=== PATIENT | female | born 2000 | race Two or more races ===

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

== ENCOUNTER 2023-06-05 04:58 | Emergency (ER) | payer OTHER ==
[~2023-06-05] VITALS: Ht 152.4 cm; Wt 61.2 kg
[2023-06-05] MEDS ORDERED: NORFLEX100MG PO (06:56)
[2023-06-05] MEDS ORDERED: NABUMETONE750 MG PO (06:56)
== END 2023-06-05 06:06 | disposition home or self-care (01) ==
LOC: ER 04:58
DX: M62.830 Muscle spasm of back (principal)

== ENCOUNTER 2024-01-22 15:37 | Emergency (ER) | payer OTHER ==
[~2024-01-22] VITALS: Ht 157.5 cm; Wt 52.2 kg
[~2024-01-22 15:37] MED LIST: NABUMETONE750 MG PO; NORFLEX100MG PO
[2024-01-22] MEDS ORDERED: 0.9 % SODIUM CHLORIDE 1,000 ML IV STA (19:20)
[2024-01-22] MEDS ORDERED: KETOROLAC TROMETHAMINE 30 MG VIAL IV STA (19:21)
[2024-01-22] MEDS ORDERED: MORPHINE SULFATE 4 MG/ML CARTRIDGE IV STA (19:22)
[2024-01-22 19:49] LABS: URINE APPEARANCE Clear; URINE BILIRRUBIN Negative (NEGATIVE); URINE BLOOD Small; URINE COLOR Yellow; URINE GLUCOSE Negative (NEGATIVE); URINE LEUKOCYTE Negative; URINE NITRATE Negative; URINE PROTEIN Negative (NEGATIVE); URINE UROBILINOGEN 0.2 E.U./dl
[2024-01-22 19:50] LABS: HEMATOCRIT 41.4 % (36.0-45.00); MEAN CELL VOLUME 80.7 fL (80.00-100.00); MEAN CORPUSCULAR HEMOGLOBIN 27.3 pg (27.00-32.0); MEAN CORPUSCULAR HGB CONC 33.9 g/dl (32.0-36.0); PLATELET COUNT 348 K/uL (150-450); RED BLOOD COUNT 5.14 M/uL (4.00-6.00); RED CELL DISTRIBUTION WIDTH 13.4 % (11.5-14.5)
[2024-01-22 19:53] LABS: URINE BACTERIA 426.9 uL (0.0-1933); URINE EPITHELIAL CELLS 6.9 uL (0.0-38.8); URINE WBC 4.9 uL (0.0-23.2)
[2024-01-22 20:11] LABS: INR 1.06; PARTIAL THROMBOPLASTIN TIME 27.7 SECONDS (22.0-34.0); PROTHROMBIN TIME 11.1 SECONDS (9.0-11.5)
[2024-01-22 20:16] LABS: ALBUMIN 4.1 gm/dL (3.4-5.0); BILIRUBIN TOTAL 0.5 mg/dL (0.3-1.2); CALCIUM 9.7 mg/dL (8.5-10.1); CREATININE SERUM 0.66 mg/dL (0.55-1.02); GFR 110.98; GLOBULINA 4.4 G/DL (2.4-3.5); POTASSIUM 3.7 mEq/L (3.5-5.1); TOTAL PROTEIN 8.5 gm/dL (6.4-8.2)
== END 2024-01-22 22:34 | disposition home or self-care (01) ==
LOC: ER 15:37
DX: R10.2 Pelvic and perineal pain (principal); D25.9 Leiomyoma of uterus, unspecified

== ENCOUNTER 2024-01-25 14:57 | Emergency (ER) | payer OTHER ==
[~2024-01-25] VITALS: Ht 157.5 cm; Wt 58.5 kg
[2024-01-25] MEDS ORDERED: 0.9 % SODIUM CHLORIDE 1,000 ML IV STA (16:16)
[2024-01-25] MEDS ORDERED: KETOROLAC TROMETHAMINE 30 MG VIAL IV STA (16:16)
[2024-01-25] MEDS ORDERED: MORPHINE SULFATE 4 MG/ML CARTRIDGE IV STA (16:17)
[2024-01-25] MEDS ORDERED: ONDANSETRON HCL 2 MG/ML VIAL IV STA (16:19)
[2024-01-25 17:13] LABS: HEMATOCRIT 38.2 % (36.0-45.00); MEAN CELL VOLUME 81.1 fL (80.00-100.00); MEAN CORPUSCULAR HEMOGLOBIN 27.6 pg (27.00-32.0); PLATELET COUNT 340 K/uL (150-450); RED BLOOD COUNT 4.71 M/uL (4.00-6.00)
[2024-01-25 17:28] LABS: ALBUMIN 3.4 gm/dL (3.4-5.0); BILIRUBIN TOTAL 0.47 mg/dL (0.3-1.2); CALCIUM 9.5 mg/dL (8.5-10.1); CREATININE SERUM 0.57 mg/dL (0.55-1.02); GFR 131.44; GLOBULINA 4.3 G/DL (2.4-3.5); POTASSIUM 3.79 mEq/L (3.5-5.1); TOTAL PROTEIN 7.7 gm/dL (6.4-8.2)
[2024-01-25 17:40] LABS: INR 1.08; PARTIAL THROMBOPLASTIN TIME 30.4 SECONDS (22.0-34.0); PROTHROMBIN TIME 11.3 SECONDS (9.0-11.5)
[2024-01-25 18:01] LABS: PH,URINE 7.5 (5.0-8.0); URINE APPEARANCE Clear; URINE BILIRRUBIN Negative (NEGATIVE); URINE BLOOD Moderate; URINE COLOR Yellow; URINE GLUCOSE Negative (NEGATIVE); URINE LEUKOCYTE Negative; URINE NITRATE Negative; URINE PROTEIN Negative (NEGATIVE); URINE UROBILINOGEN 0.2 E.U./dl
[2024-01-25 18:05] LABS: URINE BACTERIA 46.5 uL (0.0-1933); URINE EPITHELIAL CELLS 3.6 uL (0.0-38.8); URINE RBC 8.4 uL (0.0-20.8)
[2024-01-25] MEDS ORDERED: MEPERIDINE HCL/PF 50 MG/ML VIAL IM STA (19:51)
[2024-01-25] MEDS ORDERED: PROMETHAZINE HCL 50 MG/ML AMPUL IM STA (19:52)
[2024-01-26] MEDS ORDERED: KETOROLAC TROMETHAMINE 30 MG VIAL IV ONE (02:45)
== END 2024-01-26 07:31 | disposition home or self-care (01) ==
LOC: ER 14:57
DX: D25.9 Leiomyoma of uterus, unspecified (principal)

== ENCOUNTER 2024-02-11 12:10 | Outpatient (CLI) | payer OTHER | END 2024-02-11 12:16 | disposition home or self-care (01) | LOC: MRI 12:10 | PROVIDERS: ATTEND Obstetrics & Gynecology | DX: D25.1 Intramural leiomyoma of uterus (principal) | CPT/HCPCS: 72197 ==

== ENCOUNTER 2024-10-22 18:32 | Emergency (ER) | payer OTHER ==
[~2024-10-22] VITALS: Ht 157.5 cm; Wt 53.5 kg
[2024-10-22 19:35] VITALS: BP 94/66; O2SAT 98
[2024-10-22] MEDS ORDERED: FAMOtidine 10 MG/ML (4ML VIAL) IV ONE (20:15)
[2024-10-22] MEDS ORDERED: ONDANSETRON HCL 2 MG/ML VIAL IV ONE (20:15)
[2024-10-22] MEDS ORDERED: ACETAMINOPHEN 325 MG TABLET PO ONE (20:15)
[2024-10-22] MEDS ORDERED: 0.9 % SODIUM CHLORIDE 1,000 ML IV ONE (20:15)
[2024-10-22 21:06] LABS: HEMOGLOBIN 13.2 g/dL (12.0-15.00); MEAN CELL VOLUME 80.5 fL (80.00-100.00); MEAN CORPUSCULAR HGB CONC 34.8 g/dl (32.0-36.0); PLATELET COUNT 243 K/uL (150-450); RED BLOOD COUNT 4.72 M/uL (4.00-6.00); RED CELL DISTRIBUTION WIDTH 14.1 % (11.5-14.5)
[2024-10-22] MEDS ORDERED: ZOFRAN8 MG PO (21:35)
[2024-10-22] MEDS ORDERED: PEPCID AC20 MG PO (21:35)
== END 2024-10-22 21:51 | disposition home or self-care (01) ==
LOC: ER 18:34
PROVIDERS: General Practice
DX: O26.891 Other specified pregnancy related conditions, first trimester (principal); B34.9 Viral infection, unspecified; Z3A.11 11 weeks gestation of pregnancy; Z20.822 Contact with and (suspected) exposure to COVID-19

== ENCOUNTER 2024-12-30 14:28 | Outpatient (CLI) | payer OTHER ==
[~2024-12-30 14:28] MED LIST changes: +PEPCID AC20 MG PO; +ZOFRAN8 MG PO
== END 2024-12-30 14:29 | disposition home or self-care (01) ==
LOC: PRENATAL 14:28
PROVIDERS: ATTEND Obstetrics & Gynecology Maternal & Fetal Medicine
DX: O44.00 Complete placenta previa NOS or without hemorrhage, unspecified trimester (principal); O34.10 Maternal care for benign tumor of corpus uteri, unspecified trimester; Z3A.20 20 weeks gestation of pregnancy

== ENCOUNTER → 2025-03-18 13:09 | Outpatient (CLI) | payer OTHER ==
[~2025-03-18 13:09] MED LIST changes: +KETO10TA2 PO; +NAPR500T14 PO; +PRENATAL TABLE1 EAC4 PO
== END | disposition home or self-care (01) ==
LOC: PRENATAL 13:09
PROVIDERS: ATTEND Obstetrics & Gynecology Maternal & Fetal Medicine
DX: O26.849 Uterine size-date discrepancy, unspecified trimester (principal); O36.8199 Decreased fetal movements, unspecified trimester, other fetus; O34.10 Maternal care for benign tumor of corpus uteri, unspecified trimester; O32.9XX0 Maternal care for malpresentation of fetus, unspecified, not applicable or unspecified; Z3A.33 33 weeks gestation of pregnancy

== ENCOUNTER 2025-04-28 22:00 | Inpatient (IN) | payer OTHER ==
[~2025-04-28] VITALS: Ht 157.5 cm; Wt 2.7 kg
[2025-04-28 21:16] VITALS: BP 120/72; O2SAT 97
[~2025-04-28 22:00] MED LIST changes: -KETO10TA2 PO; -NAPR500T14 PO; -PRENATAL TABLE1 EAC4 PO
[2025-04-28] MEDS ORDERED: PRENATAL TABLE1 EAC4 PO (22:03)
[2025-04-28] MEDS ORDERED: AMPICILLIN SODIUM 2,000 MG VIAL IV ONE (22:15)
[2025-04-28] MEDS ORDERED: RINGERS SOLUTION,LACTATED 1,000 ML IV SCH (22:15)
[2025-04-28 22:17] LABS: BASO % 0.3 % (0.1-1.2); EOS # 0.09 (0.04-0.54); EOS % 0.7 % (0.7-7.0); LYMPH # 1.94 (1.18-3.74); LYMPH % 15.2 % (19.3-53.1); MEAN PLATELET VOLUME 9.60 fl (9.4-12.4); MONO # 1.03 (0.24-0.82); MONO % 8.1 % (4.7-12.5); NEUT # 9.56 (1.56-6.13); NEUT % 75.2 % (34.0-71.1); RED CELL DISTRIBUTION WIDTH 12.3 % (11.6-14.4)
[2025-04-28 22:18] LABS: URINE APPEARANCE Clear; URINE BILIRRUBIN Negative (NEGATIVE); URINE BLOOD Large; URINE COLOR Yellow; URINE GLUCOSE Negative (NEGATIVE); URINE LEUKOCYTE Trace; URINE NITRATE Negative; URINE PROTEIN Negative (NEGATIVE); URINE UROBILINOGEN 1.0 E.U./dl
[2025-04-28 22:22] LABS: URINE BACTERIA 154.7 uL (0.0-1933); URINE EPITHELIAL CELLS 15.2 uL (0.0-38.8); URINE RBC 672.0 uL (0.0-20.8); URINE WBC 23.8 uL (0.0-23.2)
[2025-04-28 22:25] LABS: URINE CAST 0.14 uL (0.0-1.40); URINE KETONE 80 (NEGATIVE)
[2025-04-28 22:36] LABS: INR 0.94
[2025-04-28 22:40] LABS: ALT/SGPT 22.0 U/L (12-78); AST/SGOT 24.0 U/L (15-37); BILIRUBIN TOTAL 0.33 mg/dL (0.3-1.2); BUN CREA RATIO 16.0 (7.0-25.0); CREATININE SERUM 0.5 mg/dL (0.55-1.02); GFR 151.58; GLOBULINA 3.4 G/DL (2.4-3.5); GLUCOSE FASTING 109.0 mg/dL (65-100); OSMOLALITY SERUM 280.0 MOSM/KG (275-295)
[2025-04-28 23:30] VITALS: BP 110/64
[2025-04-29 03:00] VITALS: BP 103/40
[2025-04-29] MEDS ORDERED: MORPHINE SULFATE 4 MG/ML CARTRIDGE IV ONE (03:15)
[2025-04-29] MEDS ORDERED: CEFAZOLIN SODIUM 1,000 MG VIAL IV SCH (07:00)
[2025-04-29 07:27] VITALS: BP 125/63
[2025-04-29] MEDS ORDERED: ONDANSETRON HCL 2 MG/ML VIAL IV PRN (08:15)
[2025-04-29] MEDS ORDERED: MORPHINE SULFATE 4 MG/ML CARTRIDGE IV PRN (08:15)
[2025-04-29] MEDS ORDERED: OXYTOCIN 1,000 ML IV SCH (08:15)
[2025-04-29] MEDS ORDERED: SIMETHICONE 125 MG CAPSULE PO SCH (09:00)
[2025-04-29] MEDS ORDERED: MORPHINE SULFATE 4 MG/ML VIAL IV ONE (09:50)
[2025-04-29] MEDS ORDERED: MORPHINE SULFATE 2 MG/ML CARTRIDGE IV ONE (10:20)
[2025-04-29 13:04] VITALS: BP 114/78
[2025-04-29 15:07] LABS: BASO % 0.2 % (0.1-1.2); EOS # 0.01 (0.04-0.54); EOS % 0.1 % (0.7-7.0); LYMPH # 1.68 (1.18-3.74); LYMPH % 13.8 % (19.3-53.1); MEAN PLATELET VOLUME 9.60 fl (9.4-12.4); MONO # 1.35 (0.24-0.82); MONO % 11.1 % (4.7-12.5); NEUT # 9.01 (1.56-6.13); NEUT % 74.3 % (34.0-71.1); RED CELL DISTRIBUTION WIDTH 12.0 % (11.6-14.4)
[2025-04-29] MEDS ORDERED: CEFAZOLIN SODIUM 1,000 MG VIAL IV ONE (15:45)
[2025-04-29] MEDS ORDERED: OXYTOCIN 10 UNITS/ML VIAL IV ONE (15:45)
[2025-04-29] MEDS ORDERED: ERYTHROMYCIN BASE OPHT 1GM EACH TUBE OP ONE (15:45)
[2025-04-29 16:00] VITALS: BP 109/67
[2025-04-30 02:17] VITALS: BP 103/69
[2025-04-30 06:25] VITALS: BP 98/62
[2025-04-30 08:19] VITALS: BP 105/65
[2025-04-30] MEDS ORDERED: ACETAMINOPHEN WITH CODEINE 1 UDTAB TABLET PO PRN (12:30)
[2025-04-30] MEDS ORDERED: NAPROXEN 500 MG TABLET PO SCH ×2 (13:00→17:00)
[2025-04-30 13:01] VITALS: BP 105/71
[2025-04-30 17:25] VITALS: BP 98/63
[2025-05-01 00:38] VITALS: BP 102/64
[2025-05-01 05:41] VITALS: BP 101/61
[2025-05-01 08:21] VITALS: BP 104/64
[2025-05-01 16:56] VITALS: BP 103/70
[2025-05-01] MEDS ORDERED: KETOROLAC TROMETHAMINE 60 MG VIAL IM ONE (21:45)
[2025-05-01 21:59] VITALS: BP 104/66
[2025-05-02 00:53] VITALS: BP 110/70
[2025-05-02 04:00] VITALS: BP 107/75
[2025-05-02 08:00] VITALS: BP 101/70
[2025-05-02] MEDS ORDERED: NAPR500T14 PO (12:02)
[2025-05-02] MEDS ORDERED: KETO10TA2 PO (12:02)
== END 2025-05-02 15:32 | disposition home or self-care (01) | DRG 788 ==
LOC: LDR 22:00 → OB/GYN 22:00 → LDR 22:38 → O/R 04-29 09:19 → OB/GYN 04-29 10:37
PROVIDERS: ADMIT Obstetrics & Gynecology; ATTEND Obstetrics & Gynecology
PROC: 4A1HXCZ Monitoring of Products of Conception, Cardiac Rate, External Approach (ICD-10-PCS; 2025-04-28)
PROC: 10D00Z1 Extraction of Products of Conception, Low, Open Approach (ICD-10-PCS; principal; 2025-04-29 07:00)
DX: O45.8X3 Other premature separation of placenta, third trimester (principal); Z3A.38 38 weeks gestation of pregnancy; Z37.0 Single live birth